=== PATIENT | male | born 1940 | race Two or more races ===

== ENCOUNTER 2017-06-06 14:09 | Emergency (ER) | payer MEDICAID, OTHER ==
[~2017-06-06] VITALS: Ht 165.1 cm; Wt 68.0 kg
[~2017-06-06 14:09] MED LIST: ALLO300T2 PO; ASPI325T4 PO; CLON2TAB3 PO; ESCI10TA PO; EZET10TA38 PO; HYDR-1421 PO; LOSA50TA6 PO; METF500T PO; OLAN10TA29 PO; PREG75CA PO; TAMS0.4C36 PO
[2017-06-06 15:18] LABS: Basophils # (auto) 0 uL; Basophils % (auto) 0.4 % (0.0-2.0); Eosinophils # (auto) 0.1 uL; Eosinophils % (auto) 0.7 % (0.0-7.0); Hematocrit 41.3 % (41.0-53.0); Hemoglobin 13.7 g/dL (13.5-17.5); Lymphocytes # (auto) 1.5 uL; Lymphocytes % (auto) 16.6 % (10.0-50.0); Mean Corpuscular Volume 90.7 fL (80.0-100.0); Monocytes % (auto) 11.4 % (0.0-12.0); Neutrophils # (auto) 6.3 uL; Neutrophils % (auto) 70.9 % (37.0-80.0); Nucleated Red Blood Cells % 0.1 %; Platelet Count (auto) 244 10^3/uL (140-450); Red Blood Cells 4.56 10^6/uL (4.5-5.90); Red Cell Distribution Width 14.5 % (11.8-14.3); White Blood Cell 8.9 10^3/uL (4.4-10.8)
[2017-06-06 15:43] LABS: Alanine Aminotransferase 19 U/L (16-61); Albumin 3.4 g/dL (3.4-5.0); Alkaline Phosphatase 89 U/L (45-117); Anion Gap 7 (5-15); Aspartate Aminotransferase 14 U/L (15-37); BUN/Creatinine Ratio 15.2; Bilirubin, Total 0.4 mg/dL (0.2-1.0); Blood Urea Nitrogen 14 mg/dL (7-18); Calcium 8.8 mg/dL (8.5-10.1); Carbon Dioxide 25 mmol/L (21-32); Chloride 108 mmol/L (98-107); GFR African American 102 mL/min; GFR Non-African American 85 mL/min; Glucose 96 mg/dL (74-106); Magnesium 2.5 mg/dL (1.6-2.6); Potassium 4.2 mmol/L (3.5-5.1); Sodium 140 mmol/L (136-145); Total Protein 7.2 g/dL (6.4-8.2)
[2017-06-07] MEDS ORDERED: LORazepam 0.5 MG TAB PO ONE (04:15)
[2017-06-07 05:00] VITALS: BP 159/72
== END 2017-06-07 06:47 | disposition home or self-care (01) ==
LOC: ER 14:09 → EDBD 14:09 → ER 06-07 06:47
DX: F41.9 Anxiety disorder, unspecified (principal); E11.9 Type 2 diabetes mellitus without complications
CPT/HCPCS: 36415; 70450; 80053; 83735; 84484; 85025; 93005

== ENCOUNTER 2022-08-02 11:56 | Emergency (ER) | payer OTHER, MEDICAID ==
[~2022-08-02] VITALS: Ht 165.1 cm; Wt 77.0 kg
[~2022-08-02 11:56] MED LIST changes: +CLON-857 PO; -CLON2TAB3 PO; +EZET10TA24 PO; -EZET10TA38 PO; +LOSA-69 PO; -LOSA50TA6 PO; -OLAN10TA29 PO; +OLAN1TAB19 PO
[2022-08-02 12:10] VITALS: BP 159/69
[2022-08-02 13:31] LABS: Urine Bacteria FEW /hpf (None Seen); Urine Blood Negative /uL (Negative); Urine Specific Gravity 1.006 (1.001-1.035); Urine WBC 64 /hpf (0 - 3)
[2022-08-02] MEDS ORDERED: CIPR-173 PO ×2 (14:18→19:30)
[2022-08-02] MEDS ORDERED: TAM04C PO ×2 (14:21→19:30)
== END 2022-08-02 15:31 | disposition home or self-care (01) ==
LOC: ER 11:56
DX: N39.0 Urinary tract infection, site not specified (principal); F17.210 Nicotine dependence, cigarettes, uncomplicated; F41.9 Anxiety disorder, unspecified
CPT/HCPCS: 51702; 81001

== ENCOUNTER 2022-11-09 12:49 | Emergency (ER) | payer OTHER, MEDICAID ==
[~2022-11-09] VITALS: Ht 172.7 cm; Wt 100.0 kg
[~2022-11-09 12:49] MED LIST changes: +CIPR-173 PO; +TAM04C PO
[2022-11-09 13:45] LABS: Urine Bacteria NONE SEEN /hpf (None Seen); Urine Blood Negative /uL (Negative); Urine Specific Gravity 1.008 (1.001-1.035); Urine WBC <1 /hpf (0 - 3)
[2022-11-09] MEDS ORDERED: HYDROcodone-ACET 5/325MG TAB PO ONE (14:00)
[2022-11-09 14:19] LABS: Basophils # (auto) 0 10 ^3/uL (0-0.2); Basophils % (auto) 0.6 % (0.0-2.0); Eosinophils # (auto) 0.1 10 ^3/uL (0-0.8); Eosinophils % (auto) 1.9 % (0.0-7.0); Hematocrit 34.1 % (41.0-53.0); Hemoglobin 11.6 g/dL (13.5-17.5); Lymphocytes # (auto) 1.8 10 ^3/uL (0.4-5.4); Mean Corpuscular Hemoglobin 30.6 pg (28.0-32.0); Mean Corpuscular Hgb Conc. 34.1 g/dL (32.0-36.0); Mean Corpuscular Volume 89.7 fL (80.0-100.0); Monocytes # (auto) 0.9 10 ^3/uL (0-1.3); Monocytes % (auto) 12.6 % (0.0-12.0); Neutrophils # (auto) 4.4 10 ^3/uL (1.6-8.6); Neutrophils % (auto) 59.9 % (37.0-80.0); Nucleated Red Blood Cells % 0.1 %; White Blood Cell 7.4 10^3/uL (4.4-10.8)
[2022-11-09 15:15] LABS: Potassium 4.3 mmol/L (3.5-5.1)
[2022-11-09 15:19] LABS: Albumin 2.9 g/dL (3.4-5.0); BUN/Creatinine Ratio 17.6 (10.0-20.0); Calcium 8.9 mg/dL (8.5-10.1); Magnesium 2.4 mg/dL (1.6-2.6)
[2022-11-09 15:22] LABS: Bilirubin, Total 0.4 mg/dL (0.2-1.0); Total Protein 6.8 g/dL (6.4-8.2)
[2022-11-09] MEDS ORDERED: TRAM-297 PO (15:52)
[2022-11-09 16:06] VITALS: BP 140/55
== END 2022-11-09 16:09 | disposition home or self-care (01) ==
LOC: ER 12:49
DX: S32.301A Unspecified fracture of right ilium, initial encounter for closed fracture (principal); S32.10XA Unspecified fracture of sacrum, initial encounter for closed fracture; F17.210 Nicotine dependence, cigarettes, uncomplicated; Z79.82 Long term (current) use of aspirin; Z79.899 Other long term (current) drug therapy; V03.99XA Pedestrian with other conveyance injured in collision with car, pick-up truck or van, unspecified whether traffic or nontraffic accident, initial encounter; Y93.89 Activity, other specified; Y92.410 Unspecified street and highway as the place of occurrence of the external cause; Y99.8 Other external cause status
CPT/HCPCS: 36415; 72131; 80053; 81001; 83735; 84484; 85025; 93005